=== PATIENT | male | born 2000 | race Caucasian/White ===

== ENCOUNTER → 2023-01-01 | Outpatient (CLI) | payer OTHER ==
--- NOTE | 2023-01-05 15:55 | CT ---
EXAMINATION TYPE: CT hand RT wo con CT DLP: 315 mGycm, Automated exposure control for dose reduction was used. DATE OF EXAM: 01/01/2023 5:20 PM COMPARISON: Radiographs 12/24/2022 CLINICAL INDICATION:Male, 22 years old with history of S62.141A DISP FX OF BODY OF HAMATE BONE R WRIS T; [facility], follow up and fracture hamate bone of right wrist TECHNIQUE: Axial images were obtained of the right hand . Additional coronal and sagittal reformatte d images and soft tissue and bone window were obtained for review. 3-D reconstruction was created on a separate workstation. Contrast used: None Oral contrast used: None FINDINGS: Acute fracture of the base of the fifth metacarpal with intra-articular extension and mild displacement. Series 5 image 53. The hamate is intact. No evidence for hook of hamate fracture. No ad ditional fractures visualized. No additional fractures visualized. IMPRESSION: Multi directional fracture of the base of the fifth metacarpal with intra-articular extension. The ho ok of the hamate and hamate bone are intact.
== END | disposition home or self-care (01) ==
LOC: RADCTMAIN 16:27
PROVIDERS: ATTEND Orthopaedic Surgery Hand Surgery
DX: S62.141A Displaced fracture of body of hamate [unciform] bone, right wrist, initial encounter for closed fracture (principal); S62.316A Displaced fracture of base of fifth metacarpal bone, right hand, initial encounter for closed fracture; X58.XXXA Exposure to other specified factors, initial encounter